=== PATIENT | female | born 1995 | race Caucasian/White ===

== ENCOUNTER 2018-07-14 13:46 | Emergency (ER) | payer BC ==
[~2018-07-14] VITALS: Ht 177.8 cm; Wt 77.3 kg
[2018-07-14 14:30] LABS: BASO % 0.3 % (0.0-2.0); EOS % 0.1 % (0-4.0); GRAN % 85.9 % (42.2-75.2); HEMATOCRIT 39.6 % (37.0-47.0); HEMOGLOBIN 12.8 g/dl (12.5-16.0); LYMPH # 0.8 (1.2-3.4); LYMPH % 7.2 % (20.0-51.0); MEAN CELL VOLUME 87 fl (80.0-100.0); MEAN CORPUSCULAR HEMOGLOBIN 28 pg (27.0-31.0); MEAN CORPUSCULAR HGB CONC 32 g/dl (33.0-37.0); MEAN PLATELET VOLUME 9.7 fl (7.4-10.4); MONO # 0.7 (0.1-0.6); MONO % 6.2 % (1.7-9.3); PLATELET COUNT 290 K/mm3 (130-400); RED BLOOD COUNT 4.57 M/mm3 (4.10-5.30); REDCELL DISTRIBUTION WIDTH-CV 14.5 % (11.5-14.5)
[2018-07-14 14:37] LABS: ALBUMIN 3.4 gm/dL (3.5-5.0); BILIRUBIN,TOTAL 1.5 mg/dL (0.0-1.0); CALCIUM 8.4 mg/dL (8.4-10.2); CREATININE, serum 0.97 (0.52-1.25); POTASSIUM 3.9 mmol/L (3.4-5.0); TOTAL PROTEIN 6.2 gm/dL (6.4-8.2)
[2018-07-14 15:54] VITALS: BP 104/55; PULSE 85; TEMP 98.3
== END 2018-07-14 15:55 | disposition home or self-care (01) ==
LOC: COL.ER 13:46
PROVIDERS: Emergency Medicine
DX: J02.9 Acute pharyngitis, unspecified (principal); I95.1 Orthostatic hypotension; Z88.5 Allergy status to narcotic agent
CPT/HCPCS: J2405; J7030

== ENCOUNTER 2018-07-29 16:34 | Emergency (ER) | payer BC ==
[~2018-07-29] VITALS: Ht 177.8 cm; Wt 78.6 kg
[2018-07-29 16:56] VITALS: BP 99/57; TEMP 98.6
[2018-07-29 17:51] LABS: ALBUMIN 3.8 gm/dL (3.5-5.0); C-REACTIVE PROTEIN 1.1 mg/dL (0.0-0.9); CALCIUM 8.8 mg/dL (8.4-10.2); CREATININE, serum 0.91 (0.52-1.25); TOTAL PROTEIN 7.1 gm/dL (6.4-8.2)
[2018-07-29 18:07] LABS: BASO % 0.4 % (0.0-2.0); EOS % 0.4 % (0-4.0); GRAN # 7.8 (1.4-6.5); GRAN % 85.5 % (42.2-75.2); HEMATOCRIT 40.3 % (37.0-47.0); HEMOGLOBIN 12.7 g/dl (12.5-16.0); LYMPH # 0.7 (1.2-3.4); LYMPH % 7.4 % (20.0-51.0); MEAN CELL VOLUME 89 fl (80.0-100.0); MEAN CORPUSCULAR HEMOGLOBIN 28 pg (27.0-31.0); MEAN CORPUSCULAR HGB CONC 32 g/dl (33.0-37.0); MEAN PLATELET VOLUME 9.7 fl (7.4-10.4); MONO # 0.6 (0.1-0.6); MONO % 6.1 % (1.7-9.3); PLATELET COUNT 401 K/mm3 (130-400); RED BLOOD COUNT 4.55 M/mm3 (4.10-5.30); REDCELL DISTRIBUTION WIDTH-CV 13.8 % (11.5-14.5)
[2018-07-29 18:33] LABS: COLLECTION METHOD CLEAN CATCH
[2018-07-29 18:38] LABS: MUCOUS Present /lpf; PH 6 (5-8); SQUAMOUS EPITHELIAL 0-2 /hpf; URINE APPEARANCE Clear; URINE BACTERIA None Seen /hpf; URINE BILIRUBIN Negative (NEGATIVE); URINE BLOOD Negative (NEGATIVE); URINE COLOR Yellow; URINE GLUCOSE Negative (NEGATIVE); URINE KETONE Negative (NEGATIVE); URINE LEUKOCYTE ESTERASE Negative (NEGATIVE); URINE NITRATE Negative (NEGATIVE); URINE PROTEIN(semi-quant) Negative (NEGATIVE); URINE RBC 0-2 /hpf; URINE UROBILINOGEN Negative (NEGATIVE)
[2018-07-29] MEDS ORDERED: ZOFRAN 4MG T4 MG/TAB PO (19:15)
[2018-07-29 20:41] VITALS: PULSE 87
== END 2018-07-29 19:30 | disposition home or self-care (01) ==
LOC: COL.ER 16:34
PROVIDERS: Emergency Medicine
DX: R10.30 Lower abdominal pain, unspecified (principal); R11.10 Vomiting, unspecified; Z87.442 Personal history of urinary calculi
CPT/HCPCS: J2405; J7030; Q9967